=== PATIENT | male | born 1975 | race Caucasian/White ===

== ENCOUNTER → 2018-07-12 10:27 | Outpatient (CLI) | payer OTHER, SELFPAY ==
--- NOTE | 2018-07-12 | XR_ITS ---
XR ribs RT min 3V w CXR1V Ordering Physician: Kristina Sanchez Patient Age: 42 years: Male HISTORY: Fell 1 1/2 weeks ago. Pain started right lower right ribs and now is in front of ribs cage. TECHNIQUE: Both oblique views of of the right ribs along with AP chest above and below diaphragm. COMPARISON : FINDINGS Right ribs are intact with no good evidence of acute fracture. . No discrete acute rib fracture nor lesion. Subtle undulation of 11th rib end which resides laterally, likely present on the previous CT abdomen 2014. . The lungs are clear with nothing definitely acute. Less than optimal inspiration. Heart upper normal in size. IMPRESSION: Right ribs. Intact with no acute fracture evident . Lungs clear no active disease
== END ==
PROVIDERS: PCP Family Medicine; Visit Provider Nurse Practitioner Family
DX: R07.81 Pleurodynia (principal)
CPT/HCPCS: 71101

== ENCOUNTER → 2020-12-07 08:21 | Outpatient (CLI) | payer BC, SELFPAY | PROVIDERS: PCP Family Medicine; Visit Provider Family Medicine | DX: Z20.822 Contact with and (suspected) exposure to COVID-19 (principal) | CPT/HCPCS: U0003 ==

== ENCOUNTER 2021-04-18 07:24 | Day surgery (SDC) | payer OTHER, SELFPAY ==
[2021-04-18] VITALS (14 sets, daily range): BP systolic 105–166; BP diastolic 47–98; PULSE 66–114; RESP 14–19; TEMP 36.3–36.7; O2SAT 92–99; BMI 34.4
--- NOTE | 2021-04-18 08:24 | HMH.EDGENADL ---
ED Disposition Clinical Impression: Urethral stricture Disposition: Admitted as Observation Condition on Discharge: Good - Critical Care Critical Care Time: No Attestation: On 04/18/21, the high probability of a clinically significant, sudden or life threatening deterioration of the following system(s) required my full and direct attention, intervention and personal management. The time I documented below is in addition to time spent performing reported procedures but includes the following listed in this critical care notation. Medical Decision Making - Medical Records Medical records reviewed: Yes: I reviewed the patient's medical records. - [place] Inquiry Pt receiving controlled substance: No Vital Signs: 04/18/21 07:26 04/18/21 09:00 04/18/21 11:50 Temperature 98.1 F 98.1 F Temperature Source Oral Oral Oral Pulse Rate 79 91 H Pulse Rate [Right] 94 H Respiratory Rate 18 16 18 Blood Pressure 145/71 H 135/96 H Blood Pressure [Right Arm] 166/98 H Blood Pressure Mean [Right Arm] 120 02 Sat by Pulse Oximetry 98 98 Oxygen Delivery Method Room Air Room Air Room Air Orders (Tests/Meds): ED MEDICATIONS Discontinued Medications Generic Name Dose Route Start Last Admin Trade Name Freq PRN Reason Stop Dose Admin Hydromorphone HCl 0.5 mg 04/18/21 13:45 Hydromorphone 2mg/Ml Syringe IV 04/18/21 16:30 Q5MINP PRN Moderate to Severe Pain Ketorolac Tromethamine 30 mg 04/18/21 13:45 Ketorolac 30mg/Ml Vial IV 04/18/21 16:30 NEEDED PRN Moderate Pain Ondansetron HCl 4 mg 04/18/21 13:45 Ondansetron 4mg/2ml Vial IV 04/18/21 16:30 Q6HP PRN Nausea And Vomiting ORDERS Category Date Time Status Covid-19 Nasal PCR ([facility]) Routine Lab 04/18/21 12:03 Received Medical Decision Narrative: 45-year-old male presents with acute urinary retention for the last 2 days. He is afebrile nontoxic-appearing vital signs are normal. No concern for sepsis or pyelonephritis at this time. Flaherty catheter attempted to be started by myself and multiple nurses with multiple size catheters however unable to insert due to urethral stricture. Discussed with Dr. Mendez urology and he recommends operative procedure for release of stricture. General Adult HPI - General Chief complaint: Urogenital-Male Stated complaint: trouble urinating Time Seen by Provider: 04/18/21 08:00 Mode of Arrival: Ambulatory Limitations: No Limitations Description of Symptoms (Recalled from ER Triage Doc. by RN): Patient c/o acute urinary retention starting three days prior to arrival to ED. Pt reports he has noticed in the last 8 months he has noticed a weaker urinary stream. Pt reports he has a appointment with Dr. Mendez tomorrow but stated he could not handle the pain. - History of Present Illness HPI narrative: 45-year-old male with history of BPH presents with inability to urinate for the last 2 days. He says that he has pain in his suprapubic area constant nonradiating. He has not had pain like this before. Was diagnosed with a urinary tract infection recently however has no fever chills nausea vomiting. He does have an appointment with urologist later today Dr. Mendez at 3 PM. He is requesting a Flaherty catheter insertion. Onset (ago): day(s) (2) Radiation: non-radiation Severity: severe Quality: constant Consistency: constant - Related Data Home Medications Medication Instructions Recorded Confirmed Ciprofloxacin HCl 500 mg PO BID 04/18/21 04/18/21 Tamsulosin HCl 0.4 mg PO DAILY 04/18/21 04/18/21 Previous Rx's Medication Instructions Recorded Hydrocod/Acet 5/325 mg [[place] 1 tab PO Q4HP PRN #7 tab 04/18/21 5/325mg tablet] Allergies Allergy/AdvReac Type Severity Reaction Status Date / Time No Known Allergies Allergy Verified 04/18/21 07:49 [facility] History - Hepatitis A Screen Drug use history?: No High risk sexual behaviors?: No History of sexually
--- NOTE | 2021-04-18 08:29 | PC.NURSE ---
ATTEMPTED KINSEY INSERTION X2 WITHOUT SUCCESS. MADE AWARE. ANOTHER RN ATTEMPTING PLACEMENT. PATIENT AGREEABLE.
--- NOTE | 2021-04-18 08:53 | PC.NURSE ---
Called and spoke with Dr Mendez's office. He will be calling back around 9:15.
--- NOTE | 2021-04-18 08:57 | PC.NURSE ---
ATTEMPTED KINSEY CATH, UNSUCCESSFUL, UNABLE TO ADVANCE TO THE HEAD OF THE PENIS. PT TOLERATED WELL. MD AT AND ATTEMPTED WELL WITH NO SUCCESS. CALL SENT OUT TO UROLOGY
--- NOTE | 2021-04-18 09:48 | PC.NURSE ---
DR. MAHARAJ INFORMED NURSING STAFF AND ER MD THAT PATIENT WILL GO TO SURGERY AT AROUND 1200. PATIENT AGREEABLE
--- NOTE | 2021-04-18 11:19 | PC.NURSE ---
Pt getting gown and belonging placed in bag and present with pt
--- NOTE | 2021-04-18 11:28 | HMH.CONS ---
*Admission Date: 04/18/21 *Reason for consult:: Urinary retention *History of present illness: Patient is a 45-year-old white male with an 8 to 9-month history of difficulty voiding. He states that he has had a poor stream and urinary dribbling for several months. He states that around the same time that the symptoms have occurred he had a traumatic incident with a zipper and there was some injury to the underneath of the penis and some bleeding was noted. He presented to the emergency room this morning with worsening difficulty voiding and attempts at passing a Flaherty catheter were unsuccessful. The nursing staff reports resistance just inside the urethral meatus. Patient reports a lot of pressure when voiding and now is complaining of suprapubic discomfort and difficulty voiding. [facility] History Medical History: Denies:: Cardiomyopathy, Chronic Obstructive Pulmonary Disease (COPD), Congenital Heart Disease, Deep Vein Thrombosis, Diabetes Mellitus Type 1 *Have you ever received a pneumonia vaccine?: No *Have you received a flu vaccine this season?: No Other Medical History: Denies: Anemia, Fibromyalgia, Liver Disease Other Surgeries: Yes: Hernia Repair (umbilical) Amputation: No Fractures: No - *Social History Last grade of school completed: High school graduate Smoking Status: Current some day smoker Tobacco Type: smokeless tobacco Alcohol Intake: former Substance Use Type: denies use *Occupational Status:: employed Housing: house *Travel in the last 8 weeks: None Family Hx:: Hypertension, Stroke Review of Systems - Review of Systems Review of systems:: pertinent systems reviewed and negative unless documented below - Constitutional Denies anorexia - Eyes Denies blurry vision - ENT Denies abnormal hearing - *Cardiovascular Denies chest pain - *Respiratory Denies chest congestion - *Gastrointestinal Reports abdominal pain - *Genitourinary Reports difficulty urinating, Reports genital pain - *Musculoskeletal Denies abnormal walking - Integumentary/Breasts Denies bleeding lesions - *Neurologic Denies dizziness, Denies headache(s) - Psychiatric Denies hearing things others do not hear - Endocrine Denies rapid, pounding, or irregular heartbeat - Hematologic/Lymphatic Denies easy bleeding - Allergic/Immunologic Denies GI upset with certain foods Meds Home Medications Medication Instructions Recorded Confirmed Type Ciprofloxacin HCl 500 mg PO BID 04/18/21 04/18/21 History Tamsulosin HCl 0.4 mg PO DAILY 04/18/21 04/18/21 History Allergies Allergy/AdvReac Type Severity Reaction Status Date / Time No Known Allergies Allergy Verified 04/18/21 07:49 Exam Vital signs and Labs for Last 24 Hours: Temp Pulse Resp BP Pulse Ox 98.1 F 79 16 145/71 H 98 04/18/21 07:26 04/18/21 09:00 04/18/21 09:00 04/18/21 09:00 04/18/21 09:00 I & O for Last 24 hours: Intake & Output 04/15/21 04/16/21 04/17/21 04/18/21 23:59 23:59 23:59 23:59 Weight 108.862 kg - Constitutional no acute distress - *Routine HEENT Exam Head: Present: normocephalic Eye: Present: EOMI, PERRL ENT: Present: mucous membranes moist - *Routine Neck Exam Present: supple. Absent: lymphadenopathy - *Routine Respiratory Exam Absent: accessory muscle use - *Routine Cardiovascular Exam Absent: JVD - *Routine Abdominal Exam Present: soft, tenderness, distended - *Routine Extremities Exam Absent: cyanosis, clubbing, edema - *Routine Skin Exam Present: warm. Absent: rash - *Routine Neurological Exam Present: alert, oriented X3 Assessment and Plan (1) Urinary retention Status: Acute Category: Medical Code(s): R33.9 - Retention of urine, unspecified 45-year-old white male with a several month history of urinary slowing and dribbling. He has a history of a traumatic penile injury from his zipper several months ago and his urinary symptoms have now progressed to urinary ret
--- NOTE | 2021-04-18 11:34 | PC.NURSE ---
DR. MAHARAJ OFFICE CALLING ANDREW CHRISTINA BACK TO INFORM PROCEDURE NAME IN ORDER FOR ANDREW CHRISTINA TO OBTAIN OR CONSENT.
--- NOTE | 2021-04-18 12:01 | PC.NURSE ---
CONSENT SIGNED. OR FLOW SHEET INITIATED BUT UNABLE TO COMPLETE. PRE-OP WILL BE MADE AWARE
--- NOTE | 2021-04-18 12:16 | HMH.ANESCL ---
[facility] Anesthesia Checklist - Patient Identification Patient Identification: Arm Band - Structural Data Admitted From: Emergency Dept Planned Operative Procedure/s: Cysto with urethral dilation Consent for Planned Operative Procedure(s) Verified: Yes - NPO Status Verified Time NPO: 06:30 (Sip of water) - Airway Assessment C-Spine Mobility Assessed: Yes TMJ Mobility Assessed: Yes Dentition: Good Dentition - Neurological Assessment Level of Consciousness: Awake Hx Seizures: No Numbness or tingling in extremities: No - Anesthesia Plan Anesthesia Risk discussed: Yes Anesthesia Plan: Verified ASA Class: II Anesthesia Type: MAC [facility] History I have reviewed the patient's past medical history: Yes Medical History: Denies:: Cardiomyopathy, Chronic Obstructive Pulmonary Disease (COPD), Congenital Heart Disease, Deep Vein Thrombosis, Diabetes Mellitus Type 1 *Have you ever received a pneumonia vaccine?: No *Have you received a flu vaccine this season?: No Other Medical History: Denies: Anemia, Fibromyalgia, Liver Disease Anesthesia experience/problems:: None Other Surgeries: Yes: Hernia Repair (umbilical) Amputation: No Fractures: No - *Social History Last grade of school completed: High school graduate Smoking Status: Current some day smoker Tobacco Type: smokeless tobacco # Packs/Day (cigarettes): 0 Alcohol Intake: former Alcohol Intake Frequency:: holidays/special occasions only Substance Use Type: denies use *Occupational Status:: employed Housing: house *Travel in the last 8 weeks: None Family Hx:: Hypertension, Stroke
--- NOTE | 2021-04-18 13:40 | P.PN_ITS ---
[facility] Anesthesia Record Part I Intake, IV Amount: 300 Estimated blood loss (mL): 5 Urine output (mL): 0 Blood Pressure: 128/77 SaO2: 93 Pulse Rate: 87 Respiratory Rate: 19 Temperature: 97.4 F Patient is:: Drowsy, Oral/Nasal airway Stable to PACU at:: 13:39
--- NOTE | 2021-04-18 16:45 | P.OP_ITS ---
Date of procedure: 04/18/21 Pre-op Diagnosis:: Urinary slowing/urinary retention Post-op Diagnosis:: Meatal stenosis and bulbar urethral stricture Procedure performed:: Dilation of meatal stenosis, cystoscopy with dilation of bulbar urethral stricture and Flaherty placement Surgeon:: Giovanni Mendez MD ANDROID ARCHITECT:: Other (uri) Anesthesia: LMA Estimated blood loss (mL): 3 Clinical Note:: Patient is a 45-year-old white male with 8 to 9-month history of urinary slowing. The past 3 days the urinary slowing has worsened to where he can barely void at all the presents to the emergency room today for evaluation. Operative findings:: Patient with meatal stenosis and a bulbar urethral stricture. Operative note:: Patient was taken to the operating room after informed consent was obtained. Was placed on the operating table in the supine position and general anesthesia administered. He was on preoperative oral antibiotics. He was placed into the dorsolithotomy position and prepped and draped in the standard surgical fashion. There was evidence of meatal stenosis in the urethral meatus was dilated with the 10, 12, 14, 16, 18 and 20 [place] sounds distally. The sounds were passed more proximally after initial dilation in the was still resistance noted in the mid to bulbar urethra. At this point the 22 [place] cystoscope was passed into the urethral meatus and passed to the urethral bulb where false passage was present in the true lumen was just to the right of the false passage and a guidewire was passed through the true lumen and into the bladder verified on fluoroscopy. We then used the Zane dilators to dilate the bulbar stricture. Passage of the 10 [place] Zane dilator was very difficult and there was a lot of resistance present but it did pass with a moderate amount of pressure. The subsequent dilators were passed more easily than the initial 1. Bulbar urethra was dilated with subsequent 12, 14, 16, 18 and 20 [place] Zane dilators. The cystoscope was again placed into the urethra and passed by the bulbar urethral stricture and into the bladder. The bladder was emptied and examined in a systematic fashion. There is no evidence of mucosal abnormalities, stones, diverticula or trabeculation. The ureteral orifices in their normal anatomic position. The scope then removed and a 22 [place] redding tip catheter passed over the guidewire and the guidewire removed. 10 cc placed into the balloon. The bladder was irrigated through the catheter. Patient tolerated the procedure well no complications she will be discharged to the recovery room and to home with his Flaherty catheter. I will see him back in in a week and a half for voiding trial. Condition: stable Disposition: PACU Specimens:: None Complications:: None
--- NOTE | 2021-04-19 08:48 | HMH.ANESII ---
[facility] Anesthesia Record Part II Discharge Time: 14:04 Destination: Surgical Day Care (OP Surgery) PACU nurse assessment reviewed?: Yes Patient Condition:: Good Anesthesia Complications:: None Swallowing reflex intact?: Yes Cyanosis?: No Blood Pressure: 113/77 Pulse Rate: 92 Temperature: 97.4 F Mental Status: Alert & Oriented Pain level:: 0 Nausea and/or vomitting:: None Intake, IV Amount: 0
[2021-04-19 08:49] VITALS: BP 113/77; PULSE 92; TEMP 36.3
== END 2021-04-18 14:40 | disposition home or self-care (01) ==
LOC: ER 12:04 → SDC 12:08
PROVIDERS: Emergency Provider Emergency Medicine; PCP Family Medicine; Visit Provider Urology
PROC: (CPT 52332; principal; 2021-04-18 11:00)
PROC: 0TJB8ZZ Inspection of Bladder, Via Natural or Artificial Opening Endoscopic (ICD-10-PCS; CPT 52000; principal; 2021-04-18 12:30)
DX: N35.812 Other bulbous urethral stricture, male; S38.01XA Crushing injury of penis, initial encounter; N40.1 Benign prostatic hyperplasia with lower urinary tract symptoms
CPT/HCPCS: 52281; 99283; U0003

== ENCOUNTER → 2021-04-23 09:50 | Outpatient (CLI) | payer OTHER, SELFPAY ==
[2021-04-23 12:22] LABS: Coronavirus 19 IgG Antibody Negative (Negative); Coronavirus 19 IgM Antibody Negative (Negative)
== END ==
PROVIDERS: Visit Provider Family Medicine
DX: Z20.822 Contact with and (suspected) exposure to COVID-19 (principal)
CPT/HCPCS: 36415; 86328

== ENCOUNTER → 2021-12-21 12:40 | Outpatient (CLI) | payer OTHER, SELFPAY | PROVIDERS: Visit Provider Nurse Practitioner | DX: U07.1 COVID-19 (principal) | CPT/HCPCS: C9803; U0003; U0005 ==